=== PATIENT | female | born 1985 | race Caucasian/White ===

== ENCOUNTER 2016-12-15 17:53 | Emergency (ER) | payer OTHER ==
[~2016-12-15] VITALS: Ht 165.1 cm; Wt 61.0 kg
[2016-12-15 17:55] VITALS: Ht 165.1 cm; Wt 61.0 kg
[2016-12-15] MEDS: ACETAMINOPHEN 325 MG TAB PO STA ×2 (18:58→20:08)
--- NOTE | 2016-12-15 18:58 | ERD ---
ER Documentation Chief Complaint Date/Time DATE: 12/15/16 TIME: 18:55 Chief Complaint pt bib self with c/o vag bleeding starting this afternoon approx 13 wks pre HPI This 31-year-old female presents to emergency department today with vaginal bleeding. Patient reports she is approximately 13 weeks , .00 patient reports that she has seen her OB clinic. Started on vitamins was told she was anemic. Patient reports vaginal bleeding today woke her from a nap. Reports she has a small dime size amount of blood on her underpants which has dried. She is not currently bleeding, denies blood with urinating, denies blood on toilet paper. Patient denies dysuria, nausea, abdominal pain, or back pain. ROS All systems reviewed and are negative except as per history of present illness. Allergies Allergies: Coded Allergies: No Known Allergy (Unverified , 12/15/16) Physical Exam Vitals Vital Signs Date Time Temp Pulse Resp B/P Pulse Ox O2 Delivery O2 Flow Rate FiO2 12/15/16 17:55 98.3 84 16 117/66 100 Vitals stable, triage notes reviewed Physical Exam Const: No acute distress Head: Atraumatic Eyes: Normal Conjunctiva, PERRLA, EOMI ENT: Normal External Ears, Nose and Mouth, mucous membranes moist Neck: Resp: Chest rise and fall symmetrically, clear to auscultation bilaterally, no respiratory Cardio: Abd: Soft, non tender, nontender no CVA tenderness Skin: Back: No midline or flank tenderness Ext: Neur: Awake and alert Psych: Normal Mood and Affect Result Diagram: 12/15/161913 Results 24 hrs Laboratory Tests Test 12/15/16 19:14 12/15/16 19:18 White Blood Count 10.710^3/ul Red Blood Count 3.5110^6/ul Hemoglobin 10.7g/dl Hematocrit 31.3% Mean Corpuscular Volume 89.2fl Mean Corpuscular Hemoglobin 30.5pg Mean Corpuscular Hemoglobin Concent 34.2g/dl Red Cell Distribution Width 12.1% Platelet Count 60467^3/UL Mean Platelet Volume 11.2fl Neutrophils % 59.7% Lymphocytes % 32.6% Monocytes % 6.6% Eosinophils % 0.4% Basophils % 0.4% Nucleated Red Blood Cells % 0.0/100WBC Neutrophils # 6.410^3/ul Lymphocytes # 3.510^3/ul Monocytes # 0.710^3/ul Eosinophils # 0.010^3/ul Basophils # 0.010^3/ul Nucleated Red Blood Cells # 0.010^3/ul Beta HCG, Quantitative 053001.0mIU/ml Urine Color LT. YELLOW Urine Clarity CLEAR Urine pH 6.0 Urine Specific [place] 1.020 Urine Ketones NEGATIVE Urine Nitrite NEGATIVE Urine Bilirubin NEGATIVE Urine Urobilinogen 0.2 E.U./dL Urine Leukocyte Esterase NEGATIVE Urine Microscopic RBC 0-2/HPF Urine Microscopic WBC 0-2/HPF Urine Squamous Epithelial Cells FEW Urine Bacteria FEW Urine Hemoglobin 1+ Urine Glucose NEGATIVE% Urine Total Protein NEGATIVE Current Medications Medications (Trade) Dose Ordered Sig/Brittani Route PRN Reason Start Time Stop Time Status Last Admin Dose Admin Acetaminophen (Tylenol Tab) 650 mg ONCE STAT PO 12/15/16 18:58 12/15/16 19:01 DC Procedures/MDM PROCEDURE: US OB. CLINICAL INDICATION: Vaginal bleeding, spotting TECHNIQUE: Transabdominal views of the pelvis are available for review. COMPARISON: No prior studies are available for comparison. FINDINGS: [place]-rump length: 2.13 cm, 8 weeks 5 days gestational age Mean gestational sac diameter: 2.84 cm, 7 weeks 6 days gestational age heart rate: 182 beats per minute Ultrasound estimated gestational age: 8 weeks 2 days Estimated date of delivery: 07/25/2017 There is a 2.3 x 0.7 x 2.8 cm area of decreased echogenicity suggestive of a subchorionic bleed posterior to the gestational sac. Neither ovary seen. No adnexal mass or free intrapelvic fluid is seen. IMPRESSION: Single live intrauterine with an estimated gestational age of 8 weeks 2 days based on ultrasound measurements. Suggestive of subchorionic bleed noted above. .Kilo Park MD, MD Date Time Electronically viewed and signed by .Kilo Park MD, MD on 12/15/2016 20:45 This 31-year-old female presents to emergency department for vaginal bleeding, approximately 13 weeks . Patient reports bleeding woke her up from a nap, she has not continued to bleed, denies blood on toilet paper on wiping, differential diagnosis includes but not limited to threatened miscarriage, urinary tract infection, normal vaginal bleeding early in . Urinalysis negative for leukocytosis, nitrates, or microscopic hematuria, CBC negative for hemorrhage or infection, beta quant 087726.0 pelvic ultrasound impression single living intrauterine with an estimated gestational age of 8 weeks 2 days based on ultrasound measurements. There is a 2.3 x 0.7 x 2.8 cm area with decreased echogenicity suggestive of a chronic bleed posterior to the gestational sac. Neither ovary seen. No adnexal mass or free intrapelvic fluid seen. I feel the patient is stable for discharge at this time with outpatient management by [facility] I have discussed results, examination findings, the treatment plan with the patient and family present prior to discharge. Indications for emergent reevaluation, side effects of medication were also discussed. All questions were answered. Patient verbalizes understanding and agrees with plan of care. Departure Diagnosis: Primary Impression: Vaginal bleeding in patient at less than 20 weeks gestation Condition: Good Patient Instructions: Bleeding During Early Additional Instructions: Thank you for for coming to [facility] for your care today. Please ask your nurse or provider if you have questions about your care today and do not leave until all your questions have been answered. Please use any medications given as directed and follow-up with your doctor (or the doctor you were referred to) in the next 2-3 days. If you do not have a primary care doctor you may follow up at the [facility] (listed below). You may also use motrin and tylenol as needed for fever and/or pain unless instructed otherwise by your provider or nurse. Indications for more urgent follow-up have been discussed, but you may return to the Emergency Department at ANY time for any worrisome or worsening symptoms. If you have abdominal pain, please know that no test or exam you received is perfect and you should follow up within 8 hours for continued pain. If you had any imaging studies today, such as an X-Ray or CT Scan, these studies will be reviewed later by a radiologist. You will be called if there are important findings that were not identified today, so make sure the contact information you provided at registration is correct. If you received any narcotic pain control medicine today, such as Vicodin, Morphine or Dilaudid, your coordination and judgment may be affected for a number of hours. Please do not drive or operate heavy machinery, and you may want someone to assist you at home. If you were given a prescription for narcotic medication, be aware that it is very addictive- use sparingly and only if necessary. PAYAL HADDAD December 15, 2016 18:57
[2016-12-15 19:24] LABS: ADD SCAN DIFF NO
[2016-12-15 19:26] LABS: BASOPHILS % 0.4 % (0.0-2.0); EOSINOPHILS % 0.4 % (0.0-7.0); HEMATOCRIT 31.3 % (37.0-47.0); HEMOGLOBIN 10.7 g/dl (12.0-16.0); LYMPHOCYTES # 3.5 10^3/ul (0.8-2.9); LYMPHOCYTES % 32.6 % (15.0-51.0); MEAN CORPUSCULAR HEMOGLOBIN 30.5 pg (29.0-33.0); MEAN CORPUSCULAR HGB CONC 34.2 g/dl (32.0-37.0); MEAN CORPUSCULAR VOLUME 89.2 fl (82.0-101.0); MEAN PLATELET VOLUME 11.2 fl (7.4-10.4); MONOCYTE # 0.7 10^3/ul (0.3-0.9); MONOCYTES % 6.6 % (0.0-11.0); NEUTROPHIL # 6.4 10^3/ul (1.6-7.5); NEUTROPHILS % 59.7 % (39.0-77.0); PLATELET COUNT 262 10^3/UL (140-415); RED BLOOD COUNT 3.51 10^6/ul (4.20-5.40); RED CELL DISTRIBUTION WIDTH 12.1 % (11.5-14.5); WHITE BLOOD COUNT 10.7 10^3/ul (4.8-10.8)
[2016-12-15 19:46] LABS: ADD UMIC YES; URINE BILIRUBIN (Dip) NEGATIVE (NEGATIVE); URINE BLOOD (Dip) 1+ (NEGATIVE); URINE COLOR LT. YELLOW (YELLOW); URINE GLUCOSE (Dip) NEGATIVE (NEGATIVE); URINE KETONES (Dip) NEGATIVE (NEGATIVE); URINE LEUKOCYTE ESTERASE (Dip) NEGATIVE (NEGATIVE); URINE NITRITE (Dip) NEGATIVE (NEGATIVE); URINE TOTAL PROTEIN (Dip) NEGATIVE (NEGATIVE); URINE UROBILINOGEN (Dip) 0.2 E.U./dL (0.1-1.0)
[2016-12-15 20:25] LABS: BACTERIA,URINE FEW; SQUAMOUS EPITHELIAL CELL,UR FEW; URINE RBCS 0-2 /HPF (0)
--- NOTE | 2016-12-15 20:46 | RADRPT ---
PROCEDURE: US OB. CLINICAL INDICATION: Vaginal bleeding, spotting TECHNIQUE: Transabdominal views of the pelvis are available for review. COMPARISON: No prior studies are available for comparison. FINDINGS: [place]-rump length:2.13 cm, 8 weeks 5 days gestational age Mean gestational sac diameter: 2.84 cm, 7 weeks 6 days gestational age heart rate:182 beats per minute Ultrasound estimated gestational age:8 weeks 2 days Estimated date of delivery: 07/25/2017 There is a 2.3 x 0.7 x 2.8 cm area of decreased echogenicity suggestive of a subchorionic bleed post erior to the gestational sac. Neither ovary seen. No adnexal mass or free intrapelvic fluid is seen. IMPRESSION: Single live intrauterine with an estimated gestational age of 8 weeks 2 days based on ultr asound measurements. Suggestive of subchorionic bleed noted above. RPTAT: HJES .Kilo Park MD, MD Date Time Electronically viewed and signed by .Kilo Park MD, on 12/15/2016 20:45 .S/
== END 2016-12-15 21:26 | disposition home or self-care (01) ==
LOC: FTE 17:53
DX: O20.9 Hemorrhage in early pregnancy, unspecified (principal); Z3A.08 8 weeks gestation of pregnancy
CPT/HCPCS: 36415; 76801; 81001; 84702; 85025; Z7502; Z7610

== ENCOUNTER 2017-06-11 18:50 | Outpatient (CLI) | payer OTHER ==
[~2017-06-11] VITALS: Ht 165.1 cm; Wt 89.2 kg
[2017-06-11 18:54] VITALS: Ht 165.1 cm; Wt 89.2 kg
[2017-06-11 18:55] VITALS: BP 132/85; PULSE 86; RESP 19
[2017-06-11] MEDS ORDERED: PREN-93 PO (19:17)
[2017-06-11] MEDS ORDERED: CALC600T5 PO (19:17)
[2017-06-11 19:57] LABS: BASOPHILS % 0.3 % (0.0-2.0); EOSINOPHILS % 0.3 % (0.0-7.0); HEMATOCRIT 29.3 % (37.0-47.0); HEMOGLOBIN 10.2 g/dl (12.0-16.0); LYMPHOCYTES # 2.1 10^3/ul (0.8-2.9); LYMPHOCYTES % 19.5 % (15.0-51.0); MEAN CORPUSCULAR HEMOGLOBIN 30.9 pg (29.0-33.0); MEAN CORPUSCULAR HGB CONC 34.8 g/dl (32.0-37.0); MEAN CORPUSCULAR VOLUME 88.8 fl (82.0-101.0); MONOCYTE # 0.8 10^3/ul (0.3-0.9); MONOCYTES % 7.4 % (0.0-11.0); NEUTROPHIL # 7.6 10^3/ul (1.6-7.5); NEUTROPHILS % 71.6 % (39.0-77.0); PLATELET COUNT 205 10^3/UL (140-415); WHITE BLOOD COUNT 10.6 10^3/ul (4.8-10.8)
[2017-06-11 19:59] LABS: ADD UMIC NO; UR ASCORBIC ACID 40 mg/dL (NEGATIVE); UR BILIRUBIN (Dip) NEGATIVE (NEGATIVE); UR BLOOD (Dip) NEGATIVE (NEGATIVE); UR CLARITY CLEAR (CLEAR); UR COLOR YELLOW (YELLOW); UR GLUCOSE (Dip) 2+ mg/dL (NEGATIVE); UR KETONES (Dip) TRACE mg/dL (NEGATIVE); UR LEUKOCYTE ESTERASE (Dip) NEGATIVE Leu/ul (NEGATIVE); UR NITRITE (Dip) NEGATIVE (NEGATIVE); UR SPECIFIC GRAVITY (Dip) 1.015 (1.003-1.030); UR TOTAL PROTEIN (Dip) NEGATIVE (NEGATIVE); UR UROBILINOGEN (Dip) NEGATIVE (NEGATIVE)
--- NOTE | 2017-06-11 20:09 | RADRPT ---
PROCEDURE: US OB biophysical profile. CLINICAL INDICATION: decreased movements, pelvic pain TECHNIQUE: Multiple sonographic images of the pelvis were obtained. The images were reviewed on a PACS workstation. COMPARISON: No prior studies are available for comparison. FINDINGS: There is a single viable intrauterine gestation. Cardiac activity is present with 138 beats per min council. There is a vertex presentation. The placenta is anterior. There is no evidence of placental abruption. There is a normal amount of amniotic fluid with an DEEPALI = 9.9 cm. Biophysical profile: movement 2/2 tone 2/2. breathing 2/2 DEEPALI 2/2 Total 02/25 RPTAT: AA . IMPRESSION: Normal biophysical profile. . .Gianni Evans MD, Date Time Electronically viewed and signed by .Gianni Evans MD, MD on 06/11/2017 20:09 .S/
[2017-06-11 20:21] LABS: PARTIAL THROMBOPLASTIN TIME 29.8 Sec (25.0-35.0); PROTIME 13.2 Sec (12.2-14.2)
[2017-06-11 20:23] LABS: ALBUMIN 2.8 g/dl (3.3-4.9); CALCIUM 8.7 mg/dl (8.4-10.2); CREATININE 0.48 mg/dl (0.44-1.00); POTASSIUM 3.5 mmol/L (3.5-5.1); TOTAL PROTEIN 5.6 g/dl (6.1-8.1); URIC ACID 4.2 mg/dl (3.1-7.9)
--- NOTE | 2017-06-11 20:39 | TRIAGE ---
OB Triage Datetime Report Generated by CPN: 06/11/2017 20:39 Datetime: 06/11/2017 20:36 Stage of : OB Triage Datetime: 06/11/2017 20:00 Labor Evaluation Frequency: NONE Monitor Mode: External Duration (sec)2399: NONE Pattern: Normal: <= 5 Contractions in 10 Minutes Heart Rate FHR Baseline Rate: 145 FHR Baseline Changes: No Baseline Change Variability: Moderate 6-25 bpm Accelerations: 15X15 Decelerations: Variable Datetime: 06/11/2017 19:47 Stage of : OB Triage Assessment Type: Triage Maternal Assessment Level of Consciousness: Fully Conscious Headache: Denies Blurred Vision: No Respiratory Effort: Unlabored; Regular Rhythm; Equal Expansion Nausea/Vomiting: Denies RUQ Epigastric Pain: Denies Facial Edema: None Fall Risk Assessment History of Falling: (0) No Secondary Diagnosis: (0) No Ambulatory Aid: (0) Bedrest/Nurse Assist IV Therapy: (0) No Gait: (0) Normal/Bedrest/Immobile Mental Status: (0) Oriented to Own Ability Fall Score: 0 Fall Risk Score Definition: No Risk: No action required Datetime: 06/11/2017 19:30 Labor Evaluation Frequency: NONE Monitor Mode: External Duration (sec)2399: NONE Pattern: Normal: <= 5 Contractions in 10 Minutes Heart Rate FHR Baseline Rate: 145 Monitor Mode: External US FHR Baseline Changes: No Baseline Change Variability: Moderate 6-25 bpm Accelerations: 15X15 Datetime: 06/11/2017 19:14 Assessment Type: Triage Datetime: 06/11/2017 19:11 Maternal Assessment Level of Consciousness: Fully Conscious DTR's/Clonus: DTRs 1+ Headache: Denies Blurred Vision: No Respiratory Effort: Unlabored Breath Sounds, Left: Clear and Equal Breath Sounds, Right: Clear and Equal Nausea/Vomiting: Denies RUQ Epigastric Pain: Denies Facial Edema: None Labor Evaluation Frequency: 0 Monitor Mode: External Resting Tone Gough: Relaxed Heart Rate FHR Baseline Rate: 140 Monitor Mode: External US Variability: Moderate 6-25 bpm Accelerations: 15X15 Decelerations: None Category: Category I Pain Assessment Pain Scale: 0 Pain Presence: None/Denies Pain Type: N/A Pain Goal: 3 Vaginal Exam Membrane Status: Intact Datetime: 06/11/2017 18:59 Assessment Type: Triage EGA: 34.1 Maternal Assessment Level of Consciousness: Fully Conscious DTR's/Clonus: DTRs 2+; No Clonus Headache: Denies Blurred Vision: No Respiratory Effort: Unlabored; Regular Rhythm; Equal Expansion Breath Sounds, Left: Clear and Equal Breath Sounds, Right: Clear and Equal Nausea/Vomiting: Denies RUQ Epigastric Pain: Denies Lower Extremities Edema: Bilateral Lower Extremities Degree: Pitting Upper Extremities Edema: None Degree: None Facial Edema: None Fall Risk Assessment History of Falling: (0) No Secondary Diagnosis: (0) No Ambulatory Aid: (0) Bedrest/Nurse Assist IV Therapy: (0) No Gait: (0) Normal/Bedrest/Immobile Mental Status: (0) Oriented to Own Ability Fall Score: 0 Fall Risk Score Definition: No Risk: No action required Datetime: 06/11/2017 18:35 Time of Arrival: 06/11/2017 18:35 Arrived By: Ambulatory Arrived From: Home Chief Complaint: PT CAME IN C/O GENERALIZED SWELLING SINC LAST NIGHT. DENIES ANY HEADACHES, EPIGAS TRIC PAIN OR ANY BLURRED VISION AT THIS TIME. DTR'S +1, SWELLING PIDDING. PT ALSO C/O AIRACHE SINCE 2 DAYS AGO AND STATES THAT SHE HASN'T SEEN A PHYSICIAN FOR THIS PROBLEM. Movement: Present Contractions: Denies/Absent Rupture of Membranes: Denies Vaginal Bleeding: None Vaginal Discharge: Denies Recent Sexual Intercouse: Denies Abdominal Trauma: Not Applicable Patient Complaints: Other Additional Patient Complaints: EARACHE Time Provider Notified: 06/11/2017 19:11 Provider Notified: ELISA Initial Plan: MONITOR
--- NOTE | 2017-06-11 21:18 | PN ---
Triage Information Date/Time June 11, 2017 Reason for visit: Swelling of whole body including hands and face and feet. Weeks of Gestation 34 weeks and 1 day /Para 1 para 0 Diabetes: none Hypertention: none Additional information 31-year-old with IUP at 34 weeks and 1 day presented with complaint of swelling of hands and feet sent face for the past couple of days. She denies any headache, blurred vision or epigastric pain or right upper quadrant pain. Denies any leaking of fluid, vaginal bleeding or decreased movement or contractions. Reports that recently had elevated blood pressure and office visit in the range of 130s over 80s. Blood pressure during triage visit monitor had been 120s 130s over 70s-80s. Objective Vital Signs Date Time Temp Pulse Resp B/P Pulse Ox O2 Delivery O2 Flow Rate FiO2 06/11/17 18:55 98.3 86 19 132/85 99 Room Air Heart Rate: 130's Heart Rate Comments Category 1 Contractions: None Exam General appearance: Alert and oriented 4. Does not appear to be in any acute distress. Abdomen: Soft, gravid, fundal height consistent with gestational age, no tenderness, no rebound tenderness, no guarding, NST: Category 1 Extremities: 2+ nonpitting bilateral symmetric edema, no cords palpable, negative Homans sign, no calf tenderness Hematology - 72 Hrs Test 06/11/17 19:42 White Blood Count 10.610^3/ul (4.8-10.8) Red Blood Count 3.3010^6/ul (4.20-5.40) L Hemoglobin 10.2g/dl (12.0-16.0) L Hematocrit 29.3% (37.0-47.0) L Mean Corpuscular Volume 88.8fl (82.0-101.0) Mean Corpuscular Hemoglobin 30.9pg (29.0-33.0) Mean Corpuscular Hemoglobin Concent 34.8g/dl (32.0-37.0) Red Cell Distribution Width 13.0% (11.5-14.5) Platelet Count 87717^3/UL (140-415) # Mean Platelet Volume 11.0fl (7.4-10.4) H Neutrophils % 71.6% (39.0-77.0) Lymphocytes % 19.5% (15.0-51.0) Monocytes % 7.4% (0.0-11.0) Eosinophils % 0.3% (0.0-7.0) Basophils % 0.3% (0.0-2.0) Nucleated Red Blood Cells % 0.0/100WBC (0.0-0.0) Neutrophils # 7.610^3/ul (1.6-7.5) H Lymphocytes # 2.110^3/ul (0.8-2.9) Monocytes # 0.810^3/ul (0.3-0.9) Eosinophils # 0.010^3/ul (0.0-0.5) Basophils # 0.010^3/ul (0.0-0.1) Nucleated Red Blood Cells # 0.010^3/ul (0.0-0.0) Chemistry Test 06/11/17 19:42 Sodium Level 137mmol/L (135-144) Potassium Level 3.5mmol/L (3.5-5.1) Chloride Level 105mmol/L (97-110) Carbon Dioxide Level 23mmol/L (21-31) Anion Gap 13 (8-16) Blood Urea Nitrogen 5mg/dl (7-20) L Creatinine 0.48mg/dl (0.44-1.00) Glucose Level 138mg/dl (70-220) Uric Acid 4.2mg/dl (3.1-7.9) Calcium Level 8.7mg/dl (8.4-10.2) Total Bilirubin 0.0mg/dl (0.2-1.3) L Direct Bilirubin 0.00mg/dl (0.00-0.20) Indirect Bilirubin 0.0mg/dl (0-1.1) Aspartate Amino Transf (AST/SGOT) 33IU/L (15-46) Alanine Aminotransferase (ALT/SGPT) 35IU/L (13-69) Alkaline Phosphatase 91IU/L (42-121) Total Protein 5.6g/dl (6.1-8.1) L Albumin 2.8g/dl (3.3-4.9) L Globulin 2.80g/dl (1.3-3.2) Albumin/Globulin Ratio 1.00 Results/Medications Result Diagram: 06/11/17194106/11/171941 Results 24 hrs Laboratory Tests Test 06/11/17 19:30 06/11/17 19:42 Urine Color YELLOW Urine Clarity CLEAR Urine pH 6.0 Urine Specific [place] 1.015 Urine Ketones TRACE A Urine Nitrite NEGATIVE Urine Bilirubin NEGATIVE Urine Urobilinogen NEGATIVE Urine Leukocyte Esterase NEGATIVE Urine Hemoglobin NEGATIVE Urine Glucose 2+ H Urine Total Protein NEGATIVE White Blood Count 10.6 Red Blood Count 3.30 L Hemoglobin 10.2 L Hematocrit 29.3 L Mean Corpuscular Volume 88.8 Mean Corpuscular Hemoglobin 30.9 Mean Corpuscular Hemoglobin Concent 34.8 Red Cell Distribution Width 13.0 Platelet Count 205 # Mean Platelet Volume 11.0 H Neutrophils % 71.6 Lymphocytes % 19.5 Monocytes % 7.4 Eosinophils % 0.3 Basophils % 0.3 Nucleated Red Blood Cells % 0.0 Neutrophils # 7.6 H Lymphocytes # 2.1 Monocytes # 0.8 Eosinophils # 0.0 Basophils # 0.0 Nucleated Red Blood Cells # 0.0 Prothrombin Time 13.2 Prothrombin Time Ratio 1.0 INR International Normalized Ratio 1.00 Activated Partial Thromboplast Time 29.8 Fibrinogen 350.0 Sodium Level 137 Potassium Level 3.5 Chloride Level 105 Carbon Dioxide Level 23 Anion Gap 13 Blood Urea Nitrogen 5 L Creatinine 0.48 Glucose Level 138 Uric Acid 4.2 Calcium Level 8.7 Total Bilirubin 0.0 L Direct Bilirubin 0.00 Indirect Bilirubin 0.0 Aspartate Amino Transf (AST/SGOT) 33 Alanine Aminotransferase (ALT/SGPT) 35 Alkaline Phosphatase 91 Total Protein 5.6 L Albumin 2.8 L Globulin 2.80 Albumin/Globulin Ratio 1.00 Imaging Results PROCEDURE: US OB biophysical profile. CLINICAL INDICATION: decreased movements, pelvic pain TECHNIQUE: Multiple sonographic images of the pelvis were obtained. The images were reviewed on a PACS workstation. COMPARISON: No prior studies are available for comparison. FINDINGS: There is a single viable intrauterine gestation. Cardiac activity is present with 138 beats per minute. There is a vertex presentation. The placenta is anterior. There is no evidence of placental abruption. There is a normal amount of amniotic fluid with an DEEPALI = 9.9 cm. Biophysical profile: movement 2/2 tone 2/2. breathing 2/2 DEEPALI 2/2 Total 02/25 RPTAT: AA . IMPRESSION: Normal biophysical profile. . Disposition: Discharge Assessment/Plan IUP at 34 weeks and 1 day Whole-body swelling Borderline elevated blood pressure. Still does not meet criteria for preeclampsia PIH labs are negative Asymptomatic Patient was given strict preeclampsia precaution advised to have a 24-hour urine protein collection until tomorrow Return to triage tomorrow to drop 24 hour urine for protein as well as monitoring blood pressure Signs and symptoms of preeclampsia discussed Patient verbalized understanding and agreed to comply with instructions WM PÉREZ MD Jun 11, 2017 21:18
== END 2017-06-11 20:44 | disposition home or self-care (01) ==
LOC: OBT 18:50 → L-D 18:52 → OBT 20:44
PROVIDERS: ATTEND Obstetrics & Gynecology
DX: O14.93 Unspecified pre-eclampsia, third trimester (principal); Z3A.34 34 weeks gestation of pregnancy
CPT/HCPCS: 76818; 80053; 81003; 84560; 85025; 85384; 85610; 85730; G0463

== ENCOUNTER 2018-11-06 11:08 | Emergency (ER) | payer MEDICAID, OTHER ==
[~2018-11-06] VITALS: Ht 165.1 cm; Wt 88.0 kg
[~2018-11-06 11:08] MED LIST: CALC600T5 PO; PREN-93 PO
[2018-11-06 11:11] VITALS: Ht 165.1 cm; Wt 88.0 kg
[2018-11-06] MEDS ORDERED: HYDROmorphONE 1 MG/ML SYG IV STA (11:15)
[2018-11-06] MEDS ORDERED: SOD CHLORIDE 0.9% 1,000 ML IV STA (11:15)
[2018-11-06] MEDS ORDERED: ONDANSETRON 4 MG INJ IV STA (11:15)
[2018-11-06] MEDS ORDERED: LORAZEPAM 2 MG INJ IV ONE (14:00)
[2018-11-06] MEDS ORDERED: NALO4SPR NS (15:55)
[2018-11-06] MEDS ORDERED: HYDR-4011 PO (15:55)
[2018-11-06 17:00] VITALS: BP 135/98; PULSE 73; RESP 17
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
== END 2018-11-06 17:01 | disposition home or self-care (01) ==
LOC: E/R 11:08
DX: G44.59 Other complicated headache syndrome (principal)
CPT/HCPCS: 70450; 70551; 80048; 81025; 84703; 85025; 85610; 85730; 96374; 96375; J1170; J2060; J2405; J7030; Z7502